=== PATIENT | male | born 1970 | race African-American/Black ===

== ENCOUNTER 2017-04-09 18:26 | Emergency (ER) | payer SELFPAY ==
[~2017-04-09 18:26] MED LIST: AMLO1CAP6 PO; ASPI325T4 PO; ESOM40CA PO
== END 2017-04-09 20:54 | disposition left against medical advice (07) ==
LOC: E/R 18:26
DX: Z53.21 Procedure and treatment not carried out due to patient leaving prior to being seen by health care provider (principal)